=== PATIENT | male | born 1970 | race Two or more races ===

== ENCOUNTER 2020-06-18 06:00 | Day surgery (SDC) | payer OTHER ==
[~2020-06-18 06:00] MED LIST: ZESTRIL40 M1 PO
== END 2020-06-18 13:20 | disposition home or self-care (01) ==
LOC: CIR.AMB 06:00
PROVIDERS: ATTEND Otolaryngology Otology & Neurotology
DX: H80.02 Otosclerosis involving oval window, nonobliterative, left ear (principal); Z20.828 Contact with and (suspected) exposure to other viral communicable diseases